=== PATIENT | female | born 1965 | race Two or more races ===

== ENCOUNTER → 2024-10-05 | Outpatient (CLI) | payer OTHER, SELFPAY ==
--- NOTE | 2024-10-05 13:56 | XR_ITS ---
Examination: Wrist, right 3 views Technique: Wrist AP, oblique, lateral 3 views Date and time of exam: October 05, 2024 1415 hours INDICATIONS: Right wrist pain beginning 2 months ago. FINDINGS: Significant osteopenia Mild narrowing radiocarpal joint No fracture or dislocation No avascular necrosis IMPRESSION: Mild narrowing radiocarpal joint
--- NOTE | 2024-10-05 13:56 | XR_ITS ---
Examination: Right elbow 3 views Technique: Elbow AP, oblique, lateral 3 views Exam date and time: October 05, 2024 1415 hours INDICATIONS: Right elbow pain beginning 2 months ago. FINDINGS: Mild osteopenia. No fracture or dislocation. No elbow effusion IMPRESSION: No fracture or arthritic change.
--- NOTE | 2024-10-05 13:56 | XR_ITS ---
EXAMINATION: Cervical spine, 5 views Technique: Cervical spine AP, AP odontoid, lateral, bilateral obliques, 5 views Exam date and time: October 05, 2024 1415 hours Comparison December 25, 2011 INDICATIONS: Neck pain beginning 2 months ago. FINDINGS: Reversal normal cervical lordosis Moderate degenerative disc disease C4-C5, C5-C6, C6-C7 with mild bilateral neural foraminal stenosis at these levels No cervical fracture Intact odontoid IMPRESSION: Moderate degenerative disc disease C4-C5, C5-C6, C6-C7
--- NOTE | 2024-10-05 13:56 | XR_ITS ---
Examination: Hand, right 3 views Technique: Hand AP, oblique, lateral 3 views Date and time of exam: October 05, 2024 1415 hours INDICATIONS: Right hand pain beginning 2 months ago. FINDINGS: Mild diffuse narrowing joints of the wrist and hand No erosive or other significant arthritic change Mild osteopenia No fracture or dislocation IMPRESSION: Mild osteopenia Mild diffuse narrowing joints of the wrist and hand No erosive arthritis
== END | disposition home or self-care (01) ==
LOC: CDIM 13:46
PROVIDERS: PCP Family Medicine; Referring Provider Physician Assistant; Visit Provider Physician Assistant
DX: M50.321 Other cervical disc degeneration at C4-C5 level (principal); M25.521 Pain in right elbow; M25.842 Other specified joint disorders, left hand; M25.841 Other specified joint disorders, right hand; M25.832 Other specified joint disorders, left wrist; M25.831 Other specified joint disorders, right wrist; M85.842 Other specified disorders of bone density and structure, left hand; M85.841 Other specified disorders of bone density and structure, right hand
CPT/HCPCS: 72050; 73080; 73110; 73130

== ENCOUNTER → 2024-11-03 | Outpatient (CLI) | payer BC, SELFPAY ==
--- NOTE | 2024-11-03 14:05 | XR_ITS ---
Examination: Bone densitometry Date and time of exam:November 03, 2024 1420 hours INDICATIONS: Hysterectomy age 51 postmenopausal ankle fracture 6 months ago vitamin D and calcium one week Technique: Lumbar spine and hip total bone mineralization values of an calculated. Peak reference and age match control results have been displayed. Findings: Lumbar spine total bone mineralization is0.913 gm/cm2. This is 1.2 standard deviations below peak reference. This is 0.1 standard deviations above age-matched controls. Hip total bone mineralization is 0.970 gm/cm2 This is 0.1 standard deviations above peak reference. This is 0.9 standard deviations above age-matched controls Impression: There is osteopenia based on lumbar spine measurements. There is normal mineralization based on hip measurements
== END | disposition home or self-care (01) ==
LOC: CDIM 13:37
PROVIDERS: Referring Provider Family Medicine; Visit Provider Family Medicine
DX: M85.88 Other specified disorders of bone density and structure, other site (principal)
CPT/HCPCS: 77080

== ENCOUNTER → 2024-12-07 | Outpatient (CLI) | payer BC, SELFPAY ==
--- NOTE | 2024-12-07 15:08 | XR_ITS ---
Examination: Lumbar spine 7 views TECHNIQUE: AP, lateral, coned lateral, standing lateral flexion, standing lateral extension, SOTO, ESTONIAN 7 views Exam date and time: December 07, 2024 at 1513 hours INDICATIONS: Lower back pain 3 weeks. FINDINGS: 5 mm, 1 mm, 3 mm right renal calculi Adequate alignment lumbar vertebral bodies on the lateral view No lumbar fracture Moderate disc narrowing L5-S1 No spondylolisthesis Moderate decreased range of motion between flexion and extension IMPRESSION: Moderate degenerative disc disease L5-S1 Multiple right renal calculi
--- NOTE | 2024-12-07 15:08 | XR_ITS ---
Examination:Right hip AP, lateral, AP pelvis 3 views Technique: Hip AP lateral, AP pelvis, 3 views Exam date and time:December 07, 2024 1513 hours INDICATIONS: Right hip pain beginning 3 weeks ago FINDINGS: No right or left hip fracture or dislocation Minimal bilateral hip osteoarthritis Bones the pelvis intact IMPRESSION: Minimal bilateral hip osteoarthritis.
== END | disposition home or self-care (01) ==
LOC: CDIM 15:01
PROVIDERS: PCP Family Medicine; Referring Provider Family Medicine; Visit Provider Family Medicine
DX: M16.0 Bilateral primary osteoarthritis of hip (principal); M51.379 Other intervertebral disc degeneration, lumbosacral region without mention of lumbar back pain or lower extremity pain; N20.0 Calculus of kidney
CPT/HCPCS: 72114; 73502

== ENCOUNTER → 2024-12-30 | Outpatient (CLI) | payer BC, SELFPAY ==
[2024-12-30 11:08] LABS: Basophils % (Auto) 1 % (0-2.5); Eosinophils # (Auto) 0.1 Thou/mm3 (0.0-0.5); Eosinophils % (Auto) 2 % (0-10); Hematocrit 35.5 % (36.0-46.0); Hemoglobin 11.9 g/dL (12.0-16.0); Immature Granulocytes % (Auto) 0 % (0-0); Lymphocytes # (Auto) 1.4 Thou/mm3 (1.0-4.8); Lymphocytes % (Auto) 46 % (10-50); Mean Corpuscular HGB Conc 33.5 g/dl (31.0-37.0); Mean Corpuscular Hemoglobin 29.9 pg (25.0-35.0); Mean Corpuscular Volume 89 fL (80-100); Monocytes # (Auto) 0.2 Thou/mm3 (0.0-0.8); Monocytes % (Auto) 7 % (0-12); Neutrophils # (Auto) 1.4 Thou/mm3 (1.8-7.7); Neutrophils % (Auto) 44 % (37-80); Nucleated Red Blood Cell % 0 /100 WBC (0); Platelet Count 178 Thou/mm3 (140-440); RDW Standard Deviation 39.9 fL (36.4-46.3); Red Blood Count 3.98 Miln/mm3 (4.00-5.20); White Blood Count 3.1 Thou/mm3 (3.6-11.0)
[2024-12-30 11:28] LABS: Alanine Aminotransferase 13 U/L (10-49); Albumin, Serum 4.6 gm/dL (3.5-5.0); Albumin/Globulin Ratio 2.2 (1.2-2.2); Alkaline Phosphatase 69 U/L (46-116); Anion Gap 8 (7-16); Aspartate Amino Transferase 21 U/L (0-34); BUN/Creatinine Ratio 19 Ratio (12-20); Bilirubin,Total 0.8 mg/dL (0.3-1.2); Blood Urea Nitrogen 15 mg/dL (9-23); Calcium 9.2 mg/dL (8.3-10.6); Calcium (Corrected) 9.2 mg/dL (8.5-10.1); Carbon Dioxide 27.9 mMol/L (20.0-31.0); Cardiac Risk Estimate 3.2 RATIO (3.7-5.6); Chloride 100 mMol/L (98-107); Cholesterol 210 mg/dL (132-200); Creatinine (Component) 0.8 mg/dL (0.6-1.3); Free T4 (Free Thyroxine) 1.65 ng/dL (0.89-1.76); Globulin 2.1 gm/dL (2.3-3.5); Glucose 102 mg/dL (74-106); HDL Cholesterol 65 mg/dL (40-60); LDL Cholesterol,Calculated 131 mg/dL (0-130); Osmolality,Calculated 272 (275-295); Potassium 4.6 mMol/L (3.4-5.1); Sodium 136 mMol/L (136-145); Thyroid Stimulating Hormone 0.76 uIU/mL (0.55-4.78); Total Protein 6.7 gm/dL (5.7-8.2); Triglycerides 71 mg/dL (30-150); eGFR > 60 See Note
== END | disposition home or self-care (01) ==
LOC: COPL 09:59
PROVIDERS: PCP Family Medicine; Referring Provider Family Medicine; Visit Provider Family Medicine
DX: E03.9 Hypothyroidism, unspecified (principal)
CPT/HCPCS: 36415; 80053; 80061; 84439; 84443; 85025

== ENCOUNTER → 2025-01-12 | Outpatient (CLI) | payer BC, SELFPAY ==
--- NOTE | 2025-01-12 15:00 | XR_ITS ---
Examination: Screening digital mammography, bilateral Computer aided detection 3-D breast Tomosynthesis, bilateral Date and time of exam: January 12, 2025 1444 hours Compared to mammograms dating to May 19, 2018 Indication: Screening Technique: Nonmagnified MLO, CC views of the breasts to been obtained, reconstructed from 3-D Tomosynthesis images. R2 computer aided detection program utilized for evaluation of suspicious masses and/or abnormal calcifications. 3-D Tomosynthesis images obtained. Findings: Scattered areas of fibroglandular density. Benign calcifications. No interval suspicious masses Impression: BI-RADS category II: Benign Findings. Recommend 1 year follow-up mammogram.
== END | disposition home or self-care (01) ==
LOC: CDIM 14:33
PROVIDERS: Referring Provider Family Medicine; Visit Provider Family Medicine
DX: Z12.31 Encounter for screening mammogram for malignant neoplasm of breast (principal); R92.323 Mammographic fibroglandular density, bilateral breasts; R92.1 Mammographic calcification found on diagnostic imaging of breast
CPT/HCPCS: 77063; 77067